=== PATIENT | male | born 1970 | race Caucasian/White ===

== ENCOUNTER 2018-12-17 12:12 | Emergency (ER) | payer MEDICAID ==
[2018-12-17 12:24] VITALS: BP 124/84
--- NOTE | 2018-12-17 13:37 | EDPHY ---
General Time Seen by Provider: 12/17/18 12:40 Narrative: CLINICAL IMPRESSION: Right 2nd finger laceration ASSESSMENT/PLAN: 48-year-old male presents to the emergency department with an acute right finger laceration during a EXTENSION EDUCATOR section where he reports he was trying to speak to go cyst and spirits and thought he saw a devil-like figure. He believes he cut his finger on a steel table. Distal neurovascular exam in 2 point discrimination intact. Normal range of motion. No evidence of deep structure injury. Tetanus up-to-date. Wound was anesthetized, cleaned and repaired as per chart notes. I did discuss an offer TLC evaluation and patient has declined. He does not appear gravely disabled, denies SI/HI, anxiety and depression and states he does the EXTENSION EDUCATOR sessions frequently and is not bothered by what he saw. I encouraged PCP follow-up, wound care discussed, signs and symptoms of infection reviewed, warning signs return to ED sooner alignment discharge. DIFFERENTIAL DIAGNOSIS: includes but not limited to laceration of tendon or vascular structure, underlying fracture, laceration with retained FB ED PROCECURES: Laceration Repair Verbal consent obtained by patient. Risks discussed, including but not limited to infection, pain, retained foreign body, need for additional repair, poor cosmetic result, tendon damage, nerve damage, poor wound healing, vascular damage. Alternatives to repair discussed. [place] protocol used to establish correct patient, procedure, equipment, system support specialist, and site. Anesthesia obtained by digital nerve block at right 2nd MCP. Anesthetized with 0.5% bupivacaine without epinephrine. Laceration location 2nd finger, lateral aspect, length 5 cm, depth 2 mm, Repair type simple. Patient was prepped and draped in usual sterile fashion. Hemostasis achieved with direct pressure. Wound explored through full range of motion and entire depth of wound probed and visualized with gloved finger. No suspicion for nerve damage, tendon damage, underlying fracture, vascular damage, foreign body, or contamination. Area was cleansed with [place]ur-Clens and irrigated with sterile saline as per protocol. No foreign body or material removed. Repair method 5 0 Prolene running suture. One sutures placed. Well aligned, closely approximated. wound was dressed with bacitracin, bandage, tube gauze. Patient tolerated well with no immediate complications. Wound care: Clean and dry x 24 hours, gently clean with soap and water, cover with topical antibiotic ointment/bandage. Suture/Staple removal: 7-10 Days CHIEF COMPLAINT: Laceration HPI: 48-year-old male presents to the emergency department after he allegedly "blacked out" when he thought he saw a "devil like figure" crossing his vision during an EXTENSION EDUCATOR session which is apparently something that involves speaking to ghosts and spirits of the past. Patient reports no drugs or alcohol. He is right-hand dominant. He reports slipping and striking his finger on a steel piece of metal. No numbness or loss of sensation to the finger. Tetanus reported as up-to-date. Patient does not wish to talk to mental health provider about his symptoms today. PAST MEDICAL HISTORY: Anxiety Pertinent Past Surgical History: None reported Social History: None reported, tetanus up-to-date REVIEW OF SYSTEMS: All other systems negative Constitutional: No fever, no chills Musculoskeletal: No deformity, no joint pain Skin: Right 2nd finger laceration Neurological: No sensory loss or weakness, 2 point discrimination intact. PHYSICAL EXAM: General Appearance: Alert, oriented, appropriate for age, cooperative, NAD, well hydrated, non-toxic appearing, VSS, no hypoxia. Neurological: Alert and oriented x 3 Skin: 3 cm laceration to the lateral aspect of the right 2nd finger Musculoskeletal: Full range of motion, distal 2 point discrimination intact, no evidence of flexor or extensor tendon injury MEDICAL DECISION MAKING: Patient was seen independently. Secondary supervising physician at time of evaluation was Dr. Perez . Diagnosis: Finger laceration. New, requires workup Summary: See assessment and plan for summary of ED visit Patient Progress improved, stable for discharge. - History Smoking Status: Never smoked - Objective Vital Signs: Initial Vital Signs Temperature (C) 36.6 C 12/17/18 12:22 Heart Rate 110 H 12/17/18 12:22 Respiratory Rate 18 12/17/18 12:22 Blood Pressure 124/84 H 12/17/18 12:22 O2 Sat (%) 95 12/17/18 12:22 O2 Delivery Mode Room Air Allergies/Adverse Reactions: No Known Allergies Allergy (Verified 12/17/18 12:22) Home Medications: Medication Instructions Recorded ALPRAZolam [Xanax 0.25 MG (*)] 0.25 mg PO TID PRN #5 tab 06/26/16 Departure - Departure Disposition: Home, Routine, Self-Care Clinical Impression: Finger laceration Condition: Good Instructions: Finger Laceration (ED) Additional Instructions: DISCHARGE INSTRUCTIONS FROM YOUR DOCTOR Thank you for visiting our emergency department today. You were treated by a physician benefits assistant today and your case was reviewed with our ED Attending physician. Please keep in mind that discharge from the emergency department does not mean that there is nothing wrong - it simply means that we have not identified an emergency condition that requires further evaluation or treatment in the hospital. You should always plan to follow up with primary care for re- evaluation of your condition in the next 2-3 days. If you have been referred to a specialist, please call as soon as possible (today or tomorrow) to schedule your follow up appointment at the appropriate time. [YOUR FINGER WAS REPAIRED WITH 1 RUNNING SUTURE. AVOID SUBMERGING THIS UNDER WATER. PLEASE HAVE SUTURES/ROWENA REMOVED IN 7-10 DAYS. YOU CAN RETURN TO THE EMERGENCY DEPARTMENT OR YOUR PRIMARY CARE FOR SUTURE/STAPLE REMOVAL. AVOID SUBMERGING SUTURES/ROWENA UNDERWATER FOR PROLONGED PERIOD OF TIME UNTIL REMOVED. KEEP WOUND CLEAN AND DRY, COVER WITH ANTIBIOTIC OINTMENT AND BAND-AID. RETURN TO EMERGENCY DEPARTMENT FOR REDNESS, SWELLING, DISCHARGE, WARMTH TO THE SKIN, OR ANY OTHER CONCERNS FOR INFECTION. ] People present with illnesses and injuries in different ways, and it is always possible that we have missed something. You may always return for re-evaluation if symptoms worsen or if they are not improving or if you develop new/different symptoms. Again, thank you for choosing our emergency department. We hope that you feel better. Referrals: NONE *PRIMARY CARE P,. [Primary Care Provider] - As per Instructions Klaudia Marie MD [Medical Doctor] - As per Instructions
== END 2018-12-17 13:43 | disposition home or self-care (01) ==
PROC: 0HQFXZZ Repair Right Hand Skin, External Approach (ICD-10-PCS; principal; 2018-12-17)
DX: S61.210A Laceration without foreign body of right index finger without damage to nail, initial encounter (principal); W01.198A Fall on same level from slipping, tripping and stumbling with subsequent striking against other object, initial encounter